=== PATIENT | female | born 1980 | race African-American/Black ===

== ENCOUNTER 2023-08-04 10:16 | Emergency (ER) | payer OTHER ==
[~2023-08-04] VITALS: Ht 160 cm; Wt 79.0 kg
[2023-08-04 10:17] VITALS: O2SAT 98
[2023-08-04 10:50] VITALS: TEMP 98.2
[2023-08-04] MEDS ORDERED: LACTATED RINGERS 1,000 ML IV SCH (11:00)
[2023-08-04] MEDS ORDERED: MORPHINE SULFATE 4 MG/ML CPJ (NOT FOR IM USE) IV ONE ×2 (11:00→16:45)
[2023-08-04] MEDS ORDERED: ONDANSETRON HCL 4MG/2ML INJ IV ONE (11:00)
[2023-08-04 11:14] LABS: BASOPHILS % 0.5 % (0.0-2.0); EOSINOPHILS % 1.1 % (0.0-5.0); HEMOGLOBIN. 12.1 g/dL (12.0-16.0); LYMPHOCYTES % 21.7 % (20.0-50.0); MEAN CORPUSCULAR HEMOGLOBIN 25.5 pg (28.0-32.0); MEAN CORPUSCULAR HGB CONC 31.8 g/dL (31.0-37.0); MEAN CORPUSCULAR VOLUME 80.4 fL (81.0-99.0); MEAN PLATELET VOLUME 6.7 fl (7.4-10.4); MONOCYTES % 8.1 % (2.0-8.0); NEUTROPHILS % 68.6 % (40.0-76.0); PLATELET 318 x1000/uL (130-400); RED BLOOD CELL COUNT 4.72 mill/uL (4.2-5.4); RED CELL DISTRIBUTION WIDTH 20.9 % (11.6-14.6); WHITE BLOOD COUNT 6.9 x1000/uL (4.5-11.0)
[2023-08-04 11:24] LABS: CHLORIDE 110 mEq/L (98-107); POTASSIUM 3.7 mEq/L (3.5-5.1); SODIUM 141 mEq/L (136-145)
[2023-08-04 11:28] LABS: HCG SCREEN NEGATIVE
[2023-08-04 11:32] LABS: ALANINE AMINOTRANSFERASE 19 IU/L (13-61); ALBUMIN 3.7 g/dL (3.4-5.0); ASPARTATE AMINOTRANSFERASE 16 IU/L (15-37); BILIRUBIN TOTAL 0.4 mg/dL (0.1-1.0); CARBON DIOXIDE 25 mEq/L (21-32); CREATININE 0.7 mg/dL (0.6-1.3); GLUCOSE 109 mg/dL (70-105); PROTEIN TOTAL 7.9 g/dL (6.0-8.3); UREA NITROGEN BLOOD 8 mg/dL (7-21)
[2023-08-04] MEDS ORDERED: IOHEXOL-300 100 ML BOTTLE ONE (15:23)
[2023-08-04] MEDS ORDERED: HALOPERIDOL LACTATE 5MG/ML VIAL IM ONE (16:15)
[2023-08-04 16:56] VITALS: BP 147/76; PULSE 80; RESP 22
[2023-08-04] MEDS ORDERED: IBUP-2029 MT (18:46)
[2023-08-04] MEDS ORDERED: T3 PO (18:46)
== END 2023-08-04 19:06 | disposition home or self-care (01) ==
LOC: ER 10:16
DX: R10.9 Unspecified abdominal pain (principal); R11.2 Nausea with vomiting, unspecified
CPT/HCPCS: 99285; 74177; 96374; 76856; 96361; 96375; 80053; 84703; 83690; 85025; 36415; 96376; 96372; Q9967; J1630; J2405; J2270